=== PATIENT | female | born 2000 | race American Indian/Alaskan Native ===

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

== ENCOUNTER 2018-04-24 09:49 | Emergency (ER) | payer MEDICAID ==
[2018-04-24] MEDS ORDERED: DILAUDID IV ONE (11:10)
--- NOTE | 2018-04-24 11:12 | Emergency Department Report ---
Blank Doc - Documentation Documentation: Patient is a 18-year-old [place] female who is presenting with right-sided flank pain started this morning. Patient states that the pain is 8 out of 10 in severity. Patient denies any dysuria vaginal discharge or vaginal bleeding nausea vomiting or diarrhea at this time. Brief physical exam patient is tender in the right fla. Patient able to treatment room for pain management as well as CT of the abdomen and pelvis to rule out abnormality
[2018-04-24 11:59] LABS: BUN/Creatinine Ratio 26; Blood Urea Nitrogen 18 mg/dL (7-17); Calcium 8.9 mg/dL (8.4-10.2); Hemolysis Index 7
[2018-04-24 12:00] LABS: Bilirubin,Urine NEG (Negative); Blood,Urine LG (Negative); Color,Urine Yellow (Yellow); Mucus,Urine 3+ /HPF
[2018-04-24 12:02] LABS: HCG Qualitative,Urine Negative (Negative); RBC,Urine > 182.0 /HPF (0.0-6.0)
[2018-04-24 12:09] LABS: Basophils % (Auto) 0.6 % (0.0-1.8); Eosinophils % (Auto) 0.7 % (0.0-4.3); Hemoglobin 12.4 gm/dl (10.1-14.3); Lymphocytes # (Auto) 0.9 K/mm3 (1.2-5.4); Lymphocytes % (Auto) 15.5 % (13.4-35.0); Mean Corpuscular HGB Conc 32 % (30-34); Mean Corpuscular Hemoglobin 28 pg (28-32); Mean Corpuscular Volume 89 fl (79-97); Monocytes # (Auto) 0.4 K/mm3 (0.0-0.8); Monocytes % (Auto) 6.7 % (0.0-7.3); Platelet Count 317 K/mm3 (140-440); Red Blood Count 4.38 M/mm3 (3.65-5.03); Red Cell Distribution Width 14.4 % (13.2-15.2)
--- NOTE | 2018-04-24 12:38 | Cat Scan Report ---
CT ABDOMEN PELVIS WITHOUT CONTRAST: HISTORY: Right flank pain. COMPARISON: none. TECHNIQUE: Helical CT in 1.25mm intervals without IV contrast. Sagittal and coronal reconstructions. FINDINGS: Lung bases: Normal. Liver: Normal. Biliary system: Normal. Pancreas: Normal. Spleen: Normal. Kidneys/ureters/bladder: Very few bilateral renal calyceal stones measuring up to 7 mm. A 4.9 mm calculus is identified in the proximal right ureter. Mild right pyelocaliectasis is noted. No additional ureteral stones. The bladder is partially empty but unremarkable. Adrenal glands: Normal. Aorta: Normal. Intestines: Normal. Appendix: Normal. Pelvic viscera: A 3.5 cm right adnexal cyst is identified which is probably ovarian in origin. The uterus and left adnexa are unremarkable. Ascites: None. Adenopathy: None. Musculoskeletal: Normal. IMPRESSION: Bilateral nephrolithiasis. A 4.9 mm stone at the right UVJ is also identified which is mildly obstructing. 3.5 cm right ovarian cyst.
--- NOTE | 2018-04-24 12:41 | Emergency Department Report ---
ED Abdominal Pain HPI - General Chief Complaint: Abdominal Pain Stated Complaint: LEFT SIDE FLANK PAIN Time Seen by Provider: 04/24/18 11:04 Source: patient Mode of arrival: Ambulatory Limitations: No Limitations - History of Present Illness Initial Comments: This is a 18-year-old female nontoxic, well nourished in appearance, no acute signs of distress presents to the ED with c/o of right flank pain 1 day. Patient denies any nausea or vomiting. Patient denies radiation of pain. Patient describes flank pain as cramping and aching with level of 3/10. Patient denies chest pain, short of breath, fever, chills, headache, stiff neck , numbness or tingling. Patient denies any diarrhea or constipation. Patient stated she is on her menstural cycle now. Patient denies any vaginal discharge. Patient denies any recent travels. Patient denies any allergies or PMH. MD Complaint: flank pain -: This morning Location: L flank Radiation: none Migration to: no migration Severity: mild Severity scale (0 -10): 3 Quality: cramping, aching Consistency: constant Improves With: nothing Worsens With: nothing Associated Symptoms: denies other symptoms. denies: nausea, vomiting, diarrhea , fever, chills, constipation, dysuria, hematemesis, hematochezia, melena, hematuria, anorexia, syncope - Related Data Previous Rx's Medication Instructions Recorded Last Taken Type Vit-Fe Fumar-FA [ 1 each PO QDAY #60 tablet 05/17/16 09/22/16 Rx Vitamin] Promethazine [Phenergan TAB] 25 mg PO Q6HR PRN #20 tab 09/23/16 Unknown Rx Acetaminophen/Codeine [Tylenol 1 tab PO Q6H PRN #12 tab 04/24/18 Unknown Rx /Codeine # 3 tab] Ibuprofen [Motrin] 600 mg PO Q8H PRN #30 tablet 04/24/18 Unknown Rx Ondansetron [Zofran Odt] 4 mg PO Q8HR PRN #20 tab.rapdis 04/24/18 Unknown Rx Tamsulosin [Flomax] 0.4 mg PO QDAY #5 cap 04/24/18 Unknown Rx Allergies Allergy/AdvReac Type Severity Reaction Status Date / Time No Known Allergies Allergy Verified 04/24/18 10:25 ED Review of Systems ROS: Stated complaint: LEFT SIDE FLANK PAIN Other details as noted in HPI Constitutional: denies: chills, fever Eyes: denies: eye pain, eye discharge, vision change ENT: denies: ear pain, throat pain Respiratory: denies: cough, shortness of breath, wheezing Cardiovascular: denies: chest pain, palpitations Endocrine: no symptoms reported Gastrointestinal: denies: abdominal pain, nausea, vomiting, diarrhea Genitourinary: denies: urgency, dysuria, frequency, hematuria, discharge Musculoskeletal: denies: back pain, joint swelling, arthralgia Skin: denies: rash, lesions Neurological: denies: headache, weakness, paresthesias Psychiatric: denies: anxiety, depression Hematological/Lymphatic: denies: easy bleeding, easy bruising ED Past Medical Hx - Past Medical History Previous Medical History?: No Hx Hypertension: No Hx Congestive Heart Failure: No Hx Diabetes: No Hx Deep Vein Thrombosis: No Hx Renal Disease: No Hx Sickle Cell Disease: No Hx Seizures: No Hx Asthma: No Hx COPD: No Hx HIV: No - Surgical History Past Surgical History?: No - Social History Smoking Status: Never Smoker Substance Use Type: None - Medications Home Medications: Home Medications Medication Instructions Recorded Confirmed Last Taken Type Vit-Fe Fumar-FA [ 1 each PO QDAY #60 tablet 05/17/16 05/02/17 09/22/16 Rx Vitamin] Promethazine [Phenergan TAB] 25 mg PO Q6HR PRN #20 tab 09/23/16 05/02/17 Unknown Rx Acetaminophen/Codeine [Tylenol 1 tab PO Q6H PRN #12 tab 04/24/18 Unknown Rx /Codeine # 3 tab] Ibuprofen [Motrin] 600 mg PO Q8H PRN #30 tablet 04/24/18 Unknown Rx Ondansetron [Zofran Odt] 4 mg PO Q8HR PRN #20 tab.rapdis 04/24/18 Unknown Rx Tamsulosin [Flomax] 0.4 mg PO QDAY #5 cap 04/24/18 Unknown Rx ED Physical Exam - General Limitations: No Limitations General appearance: alert, in no apparent distress - Head Head exam: Present: atraumatic, normocephalic - Eye Eye exam: Present: normal appearance - ENT ENT exam: Present: normal exam, mucous membranes moist - Neck Neck exam: Present: normal inspection, full ROM. Absent: tenderness, meningismus, lymphadenopathy - Respiratory Respiratory exam: Present: normal lung sounds bilaterally. Absent: respiratory distress, wheezes, rales, rhonchi, stridor, chest wall tenderness, accessory muscle use, decreased breath sounds, prolonged expiratory - Cardiovascular Cardiovascular Exam: Present: regular rate, normal rhythm, normal heart sounds. Absent: bradycardia, tachycardia, irregular rhythm, systolic murmur, diastolic murmur, rubs, gallop - GI/Abdominal GI/Abdominal exam: Present: soft, normal bowel sounds. Absent: distended, tenderness, guarding, rebound, rigid, diminished bowel sounds - Rectal Rectal exam: Present: deferred - Extremities Exam Extremities exam: Present: normal inspection, full ROM, normal capillary refill. Absent: tenderness - Back Exam Back exam: Present: normal inspection, full ROM. Absent: tenderness, CVA tenderness (R), CVA tenderness (L), muscle spasm, paraspinal tenderness, vertebral tenderness, rash noted - Neurological Exam Neurological exam: Present: alert, oriented X3, normal gait - Psychiatric Psychiatric exam: Present: normal affect, normal mood - Skin Skin exam: Present: warm, dry, intact, normal color. Absent: rash ED Course Vital Signs 04/24/18 04/24/18 10:21 11:26 Temperature 98.8 F Pulse Rate 83 Respiratory 16 20 Rate Blood Pressure 113/79 O2 Sat by Pulse 100 Oximetry - Reevaluation(s) Reevaluation #1: 04/24/18 13:21 Patient is speaking in full sentences with no signs of distress noted. - Consultations Consultation #1: 04/24/18 13:21 Patient has been consulted with Karly Serrano about patient history, physical exam, and labs/CT report and examined and screened patient and agrees to ED plan of care and discharge plan of care. ED Medical Decision Making - Lab Data Result diagrams: 04/24/18 11:28 04/24/18 11:28 - Medical Decision Making This is a 18-year-old female that presents with bilateral nephrolithiasis. Patient is stable and was examined by me and Dr. Heller. There is no abdominal tenderness. Negative signs of symptoms of appendicitis. Labs obtained. UA obtained. CT with contrast of abdomen obtained and dictated by the radiologist. As per Karly Serrano. patient to be discharged with pain medications and follow- up. Patient is notified of the report with no questions noted by the patient. Vital signs are stable prior to discharge. PAtient received pain meds in the ED which patient stated symptoms has resovled and subsided. A by mouth challenge has been obtained and patient tolerated well with no nausea vomiting. Patient was also instructed to Follow-up with a primary care doctor in 3-5 days or if symptoms worsen and continue return to emergency room as soon as possible. At time of discharge, the patient does not seem toxic or ill in appearance. No acute signs of distress noted. Patient agrees to discharge treatment plan of care. No further questions noted by the patient. Critical care attestation.: If time is entered above; I have spent that time in minutes in the direct care of this critically ill patient, excluding procedure time. ED Disposition Clinical Impression: Bilateral nephrolithiasis, Kidney stone Disposition: TO HOME OR SELFCARE Is pt being admited?: No Does the pt Need Aspirin: No Condition: Stable Instructions: Renal Colic (ED), Kidney Stones (ED), Acetaminophen/Codeine (By mouth), Tamsulosin (By mouth) Additional Instructions: Follow-up with a primary care doctor in 3-5 days or if symptoms worsen and continue return to emergency room as soon as possible. Prescriptions: Acetaminophen/Codeine [Tylenol /Codeine # 3 tab] 1 tab PO Q6H PRN #12 tab PRN Reason: Pain , Severe (7-10) Ibuprofen [Motrin] 600 mg PO Q8H PRN #30 tablet PRN Reason: Pain Ondansetron [Zofran Odt] 4 mg PO Q8HR PRN #20 tab.rapdis PRN Reason: Nausea Tamsulosin [Flomax] 0.4 mg PO QDAY #5 cap Referrals: PRIMARY CAREMD [Primary Care Provider] - 3-5 Days SALMA COCHRAN MD [Staff Physician] - 3-5 Days [facility] [place] [Outside] - 3-5 Days [facility] [Outside] - 3-5 Days Forms: Work/School Release Form(ED)
[2018-04-24 13:48] VITALS: BP 105/59
== END 2018-04-24 13:49 | disposition home or self-care (01) ==
LOC: ED 09:49
DX: N20.0 Calculus of kidney (principal)
CPT/HCPCS: 36415; 74176; 80048; 81001; 81025; 85025; 96374; 99284; J1170

== ENCOUNTER 2018-11-10 14:34 | Emergency (ER) | payer MEDICAID ==
[2018-11-10] MEDS ORDERED: NACL 0.9% IR ONE (14:36)
--- NOTE | 2018-11-10 14:38 | Emergency Department Report ---
Stated Complaint: RT FINGER SWELLING Time Seen by Provider: 11/10/18 14:36 - HPI History of Present Illness: paronychia of finger vss no life threat MSE completed MSE screening note: Focused history and physical exam performed. Due to findings the following was ordered: ED Disposition for MSE Condition: Stable
--- NOTE | 2018-11-10 19:52 | Emergency Department Report ---
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 x 5 days states "I bite my finger nails and it just swole up 5 days ago" pain described as pressure aching 5/10 throbbing, purulent drainage , no fever on chills no n/v rom remains intact flexion extension no deformity <MEJIA SAMSON - Last Filed: 11/10/18 19:48> <ANNETTA MCRAE - Last Filed: 11/10/18 20:27> - [facility] Chief Complaint: Extremity Injury, Upper Stated Complaint: RT FINGER SWELLING Time Seen by Provider: 11/10/18 14:36 ED Review of Systems ROS: Stated complaint: RT FINGER SWELLING Other details as noted in HPI Constitutional: denies: chills, fever Eyes: denies: eye pain, eye discharge, vision change ENT: denies: ear pain, throat pain Respiratory: denies: cough, shortness of breath, wheezing Cardiovascular: denies: chest pain, palpitations Endocrine: no symptoms reported Gastrointestinal: denies: abdominal pain, nausea, diarrhea <MEJIA SAMSON - Last Filed: 11/10/18 19:48> ROS: Stated complaint: RT FINGER SWELLING Other details as noted in HPI Genitourinary: denies: urgency, dysuria, discharge Musculoskeletal: joint swelling, other (right thumb paronychia ) Skin: denies: rash, lesions Neurological: denies: headache, weakness, paresthesias Psychiatric: denies: anxiety, depression Hematological/Lymphatic: denies: easy bleeding, easy bruising <ANNETTA MCRAE - Last Filed: 11/10/18 20:27> ED Past Medical Hx - Past Medical History Previous Medical History?: No Hx Hypertension: No Hx Congestive Heart Failure: No Hx Diabetes: No Hx Deep Vein Thrombosis: No Hx Renal Disease: No Hx Sickle Cell Disease: No Hx Seizures: No Hx Asthma: No Hx COPD: No Hx HIV: No - Surgical History Past Surgical History?: No - Social History Smoking Status: Never Smoker <MEJIA SAMSON - Last Filed: 11/10/18 19:48> <ANNETTA MCRAE - Last Filed: 11/10/18 20:27> - Medications Home Medications: Home Medications Medication Instructions Recorded Confirmed Last Taken Type Vit-Fe Fumar-FA [ 1 each PO QDAY #60 tablet 05/17/16 05/02/17 09/22/16 Rx Vitamin] Promethazine [Phenergan TAB] 25 mg PO Q6HR PRN #20 tab 09/23/16 05/02/17 Unknown Rx Acetaminophen/Codeine [Tylenol 1 tab PO Q6H PRN #12 tab 04/24/18 Unknown Rx /Codeine # 3 tab] Ibuprofen [Motrin] 600 mg PO Q8H PRN #30 tablet 04/24/18 Unknown Rx Ondansetron [Zofran Odt] 4 mg PO Q8HR PRN #20 tab.rapdis 04/24/18 Unknown Rx Tamsulosin [Flomax] 0.4 mg PO QDAY #5 cap 04/24/18 Unknown Rx Tramadol HCl [Ultram] 50 mg PO Q6H PRN #12 tablet 11/10/18 Unknown Rx cephALEXin [Keflex] 500 mg PO TID 10 Days #30 cap 11/10/18 Unknown Rx Upper Extremity Exam - Exam General: Vital signs noted. No distress. Alert and acting appropriately. <MEJIA SAMSON - Last Filed: 11/10/18 19:48> - Exam General: Vital signs noted. No distress. Alert and acting appropriately. Head and Torso: No HEENT Abnormality, No Neck Tenderness, No Chest/Lungs Abnormality, No Abdominal Tenderness, No Back Tenderness Shoulder Exam: Yes Normal Range of Motion in Shoulder, No Shoulder Tenderness, No Clavicle Tenderness, No Shoulder Deformity, No AC Joint Tenderness Arm Exam: No Arm/Humerus Tenderness, No Arm Deformity Elbow: No Elbow Tenderness, No Normal Range of Motion in Elbow, No Elbow Deformity Forearm: No Forearm Tenderness, No Forearm Deformity, No Pain with Pronation, No Pain with Supination Hand: Yes Digit Tenderness, Yes Normal ROM in Digit(s), No Hand Tenderness, No Hand Deformity, No Digit(s) Deformity, No Tendon Dysfunction CMS Exam: Yes Normal Distal Pulses, Yes Normal Capillary Refill, Yes Normal Distal Sensation, No Broken Skin <ANNETTA MCRAE - Last Filed: 11/10/18 20:27> ED Course Vital Signs 11/10/18 14:37 Temperature 99.1 F Pulse Rate 107 H Respiratory 16 Rate Blood Pressure 127/80 O2 Sat by Pulse 100 Oximetry <MEJIA SAMSON - Last Filed: 11/10/18 19:48> Vital Signs 11/10/18 14:37 Temperature 99.1 F Pulse Rate 107 H Respiratory 16 Rate Blood Pressure 127/80 O2 Sat by Pulse 100 Oximetry <ANNETTA MCRAE - Last Filed: 11/10/18 20:27> - I & D Right Finger Type of Procedure: Simple Site: right thumb Blade Size: 11 I & D Procedure: betadine prep, sterile dressing applied Progress: Right thumb paronchyia purulent drainage swelling erythema site cleaned with betadine solution anesthesia with 1% lidocaine plain 2cc via digital block incision with 11 blade scalpel x 1 moderate purulent drainage, wound irrigated with 10 cc sterile saline, sterile dressing applied all bleeding is controlled pt tolerated procedure with minimal distress, pt given wound care instructions. <ANNETTA MCRAE - Last Filed: 11/10/18 20:27> ED Medical Decision Making - Medical Decision Making right thumb paronychia for I&D see procedure note, pt tolerated procedure with minimal distress, rom intact no muscle tendon or nerve involvement , no fever chills , distal pulse intact tibco developer < 3 sec, all bleeding is controlled sterile dressing is intact pt will follow up with pcp in 2 days for wound check , return to ed if symptoms worsen, pt verbalized agreement and understanding of same. pain is improved, there has been no fall injury or trauma will dc [facility] rx for keflex, ultram, pain is reduced to 1/10 after digital block , pt dc'd to home in stable condition , osteomyelitis was considered not likely in this case. however pt given strict instructions to return to ed if symptoms worsen. <ANNETTA MCRAE - Last Filed: 11/10/18 20:27> Critical care attestation.: If time is entered above; I have spent that time in minutes in the direct care of this critically ill patient, excluding procedure time. <MEJIA SAMSON - Last Filed: 11/10/18 19:48> Critical care attestation.: If time is entered above; I have spent that time in minutes in the direct care of this critically ill patient, excluding procedure time. <ANNETTA MCRAE - Last Filed: 11/10/18 20:27> ED Disposition <MEJIA SAMSON - Last Filed: 11/10/18 19:48> Is pt being admited?: No Does the pt Need Aspirin: No Time of Disposition: 20:26 <ANNETTA MCRAE - Last Filed: 11/10/18 20:27> Clinical Impression: Paronychia Disposition: DC- TO HOME OR SELFCARE Condition: Stable Instructions: Paronychia (ED) Prescriptions: cephALEXin [Keflex] 500 mg PO TID 10 Days #30 cap Tramadol HCl [Ultram] 50 mg PO Q6H PRN #12 tablet PRN Reason: pain Referrals: S[facility]ILDS [Primary Care Provider] - 3-5 Days [facility] [Outside] - 3-5 Days Forms: Work/School Release Form(ED)
[2018-11-10] MEDS ORDERED: ULTRAM PO ONE (20:02)
[2018-11-10] MEDS ORDERED: KEFLEX PO ONE (20:02)
[2018-11-10 20:57] VITALS: BP 118/64
== END 2018-11-10 20:45 | disposition home or self-care (01) ==
LOC: ED 14:34
DX: L03.011 Cellulitis of right finger (principal)